=== PATIENT | female | born 1995 | race Caucasian/White ===

== ENCOUNTER 2023-05-28 13:48 | Emergency (ER) | payer MEDICAID, SELFPAY ==
[2023-05-28 13:53] VITALS: BP 119/83; PULSE 108; RESP 16; O2SAT 97; BMI 36.1
[2023-05-28 13:58] VITALS: O2SAT 98
--- NOTE | 2023-05-28 14:11 | XRR_ITS ---
PROCEDURE INFORMATION: Exam: XR Right Hand Exam date and time: 05/28/2023 2:15 PM Age: 27 years old Clinical indication: Injury or trauma; Fall; Crushing; Hand; Right; Additional info: Right hand injury TECHNIQUE: Imaging protocol: Radiologic exam of the right hand. Views: 1 or 2 views. COMPARISON: No relevant prior studies available. FINDINGS: Bones/joints: There is questionable malalignment at the 2nd carpometacarpal joint versus artifact related to position. Joint alignment is otherwise normal. Joint spaces are preserved. No acute fracture. Soft tissues: Visible soft tissues are unremarkable. XR/XR hand RT 2V [id number] IMPRESSION: Questionable malalignment at the 2nd carpometacarpal joint versus artifact related to positioning. Correlate with physical exam findings. Consider repeat radiographs.
--- NOTE | 2023-05-28 15:36 | XRR_ITS ---
PROCEDURE INFORMATION: Exam: XR Left Hand Exam date and time: 05/28/2023 3:51 PM Age: 27 years old Clinical indication: Injury or trauma; Fall; Crushing; Hand; Right; Additional info: Injury right hand. Equivocal first xray TECHNIQUE: Imaging protocol: Radiologic exam of the left hand. Views: 3 or more views. COMPARISON: No relevant prior studies available. FINDINGS: Bones/joints: Osseous structures are intact. Negative for fracture. Joint spaces are preserved. Soft tissues: Normal. XR/XR hand LT min 3V* [id number] IMPRESSION: No acute findings.
--- NOTE | 2023-05-28 15:51 | W.ED.EXTPRO ---
HPI - Extremity Problem General: Chief complaint: Extremity Injury, Upper Stated complaint: Right hand injury Time Seen by Provider: 05/28/23 14:46 Source: patient Mode of arrival: ambulatory Limitations: no limitations History of Present Illness: This 27-year-old female presents to the ER for evaluation of traumatic injury to the right hand. She was trying to get her cows into the barn when one of them jumped onto her back and in an attempt to use her right hand to [place] off the cow, she hit her hand against the cow's horn. There is swelling and pain on the dorsum of the right hand. She is right-handed. Patient denies any other injuries. Associated symptoms: Deny chest pain Review of Systems Const: Denies: chills, body aches or change in appetite Eyes: Denies: change in vision or eye discharge ENMT: Denies: throat pain, dental pain or nasal discharge Card: Denies: chest pain or lightheadedness : Denies: dysuria Musc: Reports: other (pain and swelling on right hand); Denies: neck pain or back pain Neuro: Denies: headache(s) or weakness in extremities Psych: Denies: depression Tom/Lymph: Denies: easy bruising All/Imm: Denies: urticaria, tongue swelling or facial swelling Physical Exam Const: COMMON NORMALS: no acute distress, patient oriented x3, no limitations and alert HENMT: COMMON NORMALS: normocephalic HEAD & SCALP: normocephalic Eye: COMMON NORMALS: EOMs intact bilaterally Neck/C-Spine: COMMON NORMALS: full ROM and supple Chest: COMMONS NORMALS: normal inspection of the chest Resp: COMMON NORMALS: normal respiratory effort, No retractions, No use of accessory muscles and clear to auscultation bilaterally AUSCULTATION: clear to auscultation bilaterally Cardio: COMMON NORMALS: regular rate, regular rhythm and No murmurs present (Cardio) RATE: regular rate RHYTHM: regular rhythm GI: COMMON NORMALS: Normal to inspection, nondistended, normoactive bowel sounds present and non-tender : COMMON NORMALS: Yes no CVA tenderness BLADDER/KIDNEY EXAM: Yes no CVA tenderness Back/Pelvis: COMMON NORMALS: no CVA tenderness and no thoracic nor lumbar tenderness Extremity: GENERAL: Yes normal exam except as noted EXTREMITY IMAGE (FRONT): 1. Tenderness and swelling of the right hand especially over the fourth and fifth knuckles. There is limitation of full flexion of the MCP due to pain. No distal neurovascular deficit Neuro: COMMON NORMALS: patient oriented x3 and no focal motor deficits SENSORIUM/ORIENTATION: Yes alert Psych: COMMON NORMALS: mental status grossly normal and cooperative Course Vital Signs: Vital signs: Vital Signs Pulse Rate 108 H 05/28/23 13:53 Respiratory Rate 16 05/28/23 13:53 Blood Pressure 119/83 05/28/23 13:53 Pulse Oximetry 97 05/28/23 17:00 Oxygen Delivery Me thod Room Air 05/28/23 15:58 MDM - Extremity (Nontraumatic) Medical Decision Making Medical decision making: This 27-year-old female presents to the ER for evaluation of right hand injury. X-ray is negative for any acute fracture. She will be treated symptomatically. Reasons to return were discussed. Lab Data Radiology Impressions Hand X-Ray 05/28/23 15:36 IMPRESSION: No acute findings. Discharge Plan Discharge Patient Disposition: Home Clinical Impression: Contusion of left hand Condition: Stable Discharge Orders: Discharge ED (Routine); Ordered 05/28/23 Ordered By: Sav Lainez Discharge Diet: Usual diet Discharge Activity: Resume usual activity Patient Instructions: Opioid Safety, Pain Management Activity Restrictions/Additional Instructions: Apply ice to the affected area for 10 to 15 minutes, 2-3 times daily. Keep the hand elevated especially over the next 2 to 3 days. You may take [id number] Tylenol or Motrin as needed for pain. Follow-up with your primary care doctor in a week for reevaluation. Return with new or worsening symptoms. Coding Level of Care Code ED Investigation Clerk for Krish Ashley
[2023-05-28 15:58] VITALS: O2SAT 98
[2023-05-28 17:00] VITALS: O2SAT 97
== END 2023-05-28 17:36 | disposition home or self-care (01) ==
PROVIDERS: Emergency Provider Family Medicine
DX: S69.91XA Unspecified injury of right wrist, hand and finger(s), initial encounter (principal); S60.222A Contusion of left hand, initial encounter; W55.22XA Struck by cow, initial encounter; Y92.71 Barn as the place of occurrence of the external cause
CPT/HCPCS: 73120; 73130; 99283

== ENCOUNTER → 2023-06-29 12:18 | Outpatient (BNVA) | payer MEDICAID, SELFPAY | PROVIDERS: Visit Provider Nurse Practitioner Family | DX: Z30.09 Encounter for other general counseling and advice on contraception (principal) | CPT/HCPCS: 81025 ==

== ENCOUNTER → 2023-09-08 15:00 | Outpatient (BNVA) | payer MEDICAID, SELFPAY | PROVIDERS: PCP Nurse Practitioner Family; Visit Provider Nurse Practitioner Family | DX: N94.10 Unspecified dyspareunia (principal); Z13.6 Encounter for screening for cardiovascular disorders; Z12.4 Encounter for screening for malignant neoplasm of cervix | CPT/HCPCS: 80053; 80061; 84443; 85025; 88175 ==

== ENCOUNTER 2023-09-22 14:03 | Outpatient (CLI) | payer MEDICAID, SELFPAY ==
--- NOTE | 2023-09-22 14:30 | US_ITS ---
WS: [id number] US pelv w/transvag [id number] HISTORY: N94.10 - Unspecified dyspareunia COMPARISON: None available. Uterus: 8.9 cm x 5.0 cm x 3.4 cm. Normal size anteverted uterus. No fibroid or mass. Endometrium: 0.3 cm. Normal. Right ovary: 2.4 cm x 1.9 cm x 1.9 cm. Normal size and vascularity, no cystic or solid masses. Left ovary: 2.8 cm x 1.9 cm x 2.0 cm. Normal size and vascularity, no cystic or solid masses. No free fluid in the cul-de-sac. IMPRESSION: Normal pelvic ultrasound.
== END 2023-09-22 14:04 | disposition home or self-care (01) ==
LOC: RAD 14:03
PROVIDERS: PCP Nurse Practitioner Family; Visit Provider Nurse Practitioner Family
DX: N94.10 Unspecified dyspareunia (principal)
CPT/HCPCS: 76830; 76856

== ENCOUNTER → 2024-03-25 15:10 | Outpatient (BNVA) | payer MEDICAID, SELFPAY | PROVIDERS: PCP Nurse Practitioner Family; Visit Provider Nurse Practitioner Family | DX: N93.9 Abnormal uterine and vaginal bleeding, unspecified (principal) | CPT/HCPCS: 80053; 81003; 81025; 84146; 84439; 84443; 85025; 87086 ==

== ENCOUNTER 2024-03-28 21:34 | Emergency (ER) | payer MEDICAID, SELFPAY ==
[2024-03-28 21:55] VITALS: BP 122/78; PULSE 97; RESP 16; TEMP 36.7; O2SAT 99; BMI 37.2
[2024-03-29 00:28] LABS: Basophils % 0.5 %; Eosinophils # 0.2 10^3/uL (0.0-0.8); Eosinophils % 1.8 %; Hematocrit 42.5 % (36-47); Lymphocytes # 2.5 10^3/uL (0.8-4.8); Lymphocytes % 29.7 %; Mean Corpuscular HGB Conc 33.6 g/dL (30-55); Mean Corpuscular Hemoglobin 28.7 pg (27-33); Mean Corpuscular Volume 85.3 fl (85-98); Mean Platelet Volume 8.6 fL (7.4-10.4); Monocytes # 0.5 10^3/uL (0.2-0.9); Monocytes % 5.4 %; Neutrophils # 5.21 10^3/uL (1.8-7.7); Neutrophils % 62.4 %; Nucleated Red Blood Cells % 0 %; Platelet Count 271 10^3/cmm (157-399); Red Blood Count 4.98 10^6/uL (3.85-5.65); Red Cell Distribution Width 12.9 % (12.1-15.1); White Blood Count 8.35 10^3/uL (3.29-11.43)
--- NOTE | 2024-03-29 01:12 | ED_ITS ---
HPI - Female Genitourinary 2 General: Chief complaint: Vaginal Bleeding Stated complaint: Period for A month Time Seen by Provider: 03/29/24 01:08 History of Present Illness: Patient presents to the ER with complaints of heavy vaginal bleeding for the last month. Patient says she been on her period for the last month going through up to 10 pads a day. Patient says she occasionally gets lightheaded and dizzy but this does not happen all the time. She also states she has had a headache for the last 3 days. Patient seen her PCP about this and has been referred to Dr. Beltran on 521. Date of Last Menstrual Period: 02/24/24 Review of Systems 2 General: Reports: 10 or more systems reviewed and unremarkable except in HPI and below PFSH ED 2 PFSH: Medical History Insomnia Social History Smoking and tobacco/nicotine status: never used tobacco/nicotine Alcohol intake: never Substance/Drug Use: never Household members: spouse Marital status: Number of children: 2 Current occupational status: employed Current occupation: construction Current gender identity: Female Special alex needs: No Female Reproductive History: Date of last menstrual period: 02/24/24 Physical Exam 2 Const: COMMON NORMALS: no acute distress, average body habitus, patient oriented x3, no limitations, healthy appearing, alert and well nourished HENMT: COMMON NORMALS: normocephalic, atraumatic, hearing grossly normal bilaterally, external ears normal, Normal external nose present, moist oral mucous membranes and oropharynx normal HEAD & SCALP: normocephalic and atraumatic NOSE: Normal external nose present EXTERNAL EAR: Yes external ears normal Neck/C-Spine: COMMON NORMALS: full ROM, no lymphadenopathy, supple, no meningeal signs, no JVD and Thyroid normal THYROID: Thyroid normal Chest: COMMONS NORMALS: normal inspection of the chest and normal palpation of entire chest wall Resp: COMMON NORMALS: normal respiratory effort, No retractions, No use of accessory muscles and clear to auscultation bilaterally AUSCULTATION: clear to auscultation bilaterally Cardio: COMMON NORMALS: no JVD, regular rate, regular rhythm, S1 normal heart sound present, S2 normal heart sound present, No gallops present (Cardio), No clicks present (Cardio), No murmurs present (Cardio) and No rub (Cardio) R ATE: regular rate RHYTHM: regular rhythm HEART SOUNDS: S1 normal heart sound present and S2 normal heart sound present Neuro: COMMON NORMALS: patient oriented x3 SENSORIUM/ORIENTATION: Yes alert MENINGEAL SIGNS: Yes no meningeal signs Course 2 Vital Signs: Vital signs: Vital Signs Temperature 98.0 F 03/28/24 21:55 Pulse Rate 97 03/28/24 21:55 Respiratory Rate 16 03/28/24 21:55 Blood Pressure 122/78 03/28/24 21:55 Pulse Oximetry 99 03/28/24 21:55 Oxygen Delivery Me thod Room Air 03/28/24 21:55 MDM - Female Medical Decision Making CBC showed patient's hemoglobin of 14.3, patient was given Toradol 60 mg IM for headache. Patient be DC'd home and instructed to keep her appointment with Dr. Beltran. Differential Diagnosis Unlikely abdominal pain, acute appendicitis, calculus of kidney, constipation, diverticulitis, endometriosis, gastroenteritis, pancreatitis or small bowel obstruction Medical Records I reviewed the patient's medical records. Lab Data I reviewed the patient's lab results. 03/29/24 00:10 Laboratory Results WBC 8.35 10^3/uL (3.29-11.43) 03/29/24 00:10 RBC 4.98 10^6/uL (3.85-5.65) 03/29/24 00:10 Hgb 14.30 g/dL (11.27-16.99) 03/29/24 00:10 Hct 42.5 % (36-47) 03/29/24 00:10 MCV 85.3 fl (85-98) 03/29/24 00:10 MCH 28.7 pg (27-33) 03/29/24 00:10 MCHC 33.6 g/dL (30-55) 03/29/24 00:10 RDW 12.9 % (12.1-15.1) 03/29/24 00:10 Plt Count 271 10^3/cmm (157-399) 03/29/24 00:10 MPV 8.6 fL (7.4-10.4) 03/29/24 00:10 Neut % (Auto) 62.4 % 03/29/24 00:10 Lymph % (Auto) 29.7 % 03/29/24 00:10 [place] % (Auto) 5.4 % 03/29/24 00:10 Eos % (Auto) 1.8 % 03/29/24 00:10 Baso % (Auto) 0.5 % 03/29/24 00:10 Neut # (Auto) 5.21 10^3/uL (1.8-7.7) 03/29/24 00:10 Lymph # (Auto) 2.5 10^3/uL (0.8-4.8) 03/29/24 00:10 [place] # (Auto) 0.5 10^3/uL (0.2-0.9) 03/29/24 00:10 Eos # (Auto) 0.2 10^3/uL (0.0-0.8) 03/29/24 00:10 Baso # (Auto) 0.0 10^3/uL (0.0-0.1) 03/29/24 00:10 Nucleated RBC % (auto) 0 % 03/29/24 00:10 Nucleated RBCs # 0.0 /100WBC 03/29/24 00:10 No radiology studies performed this visit Discharge Plan Discharge Patient Disposition: Home Clinical Impression: Dysfunctional uterine bleeding Headache Qualifiers: Headache type: unspecified Headache chronicity pattern: acute headache I ntractability: not intractable Qualified Code(s): R51.9 - Headache, unspecified Condition: Stable Prescriptions: No Action trazodone 50 mg tablet 50 mg PO .qhs Qty: 30 0RF norgestimate-ethinyl estradiol [Estarylla] 0.25-35 mg-mcg tablet 1 tab PO DAILY Qty: 84 3RF Discharge Orders: Discharge ED (Routine); Ordered 03/29/24 Ordered By: Jose Li Referrals: Karen Marmolejo FNP [Primary Care Provider] - 1 week Patient Instructions: General Headache (ED), Abnormal Uterine Bleeding Activity Restrictions/Additional Instructions: Your hemoglobin was good at 14. This shows you are not anemic. Please consider taking [id number] naproxen at 500 mg twice a day as this is shown to help reduce pain cramps and your menstrual flow. Please keep your appointment with Dr. Beltran already scheduled. Coding Level of Care Code ED Screening Specialist for Chg Gabi
[2024-03-29] MEDS: ketorolac 60 mg/2 mL INJ IM (01:45)
[2024-03-29 01:57] VITALS: BP 106/69; PULSE 82; RESP 16; O2SAT 98
== END 2024-03-29 01:58 | disposition home or self-care (01) ==
PROVIDERS: Emergency Provider Emergency Medicine; PCP Nurse Practitioner Family
DX: N93.8 Other specified abnormal uterine and vaginal bleeding (principal); R51.9 Headache, unspecified
CPT/HCPCS: 85025; 96372; 99284; J1885